=== PATIENT | female | born 1985 | race Caucasian/White ===

== ENCOUNTER 2019-03-30 17:51 | Emergency (ER) | payer MEDICAID ==
[~2019-03-30] VITALS: Ht 170.2 cm; Wt 73.5 kg
[2019-03-30] MEDS ORDERED: LISI-600 PO (20:09)
[2019-03-30 20:30] VITALS: BP 132/94
== END 2019-03-30 20:33 | disposition home or self-care (01) ==
LOC: ER 17:52
DX: R06.00 Dyspnea, unspecified (principal); I10 Essential (primary) hypertension; F12.90 Cannabis use, unspecified, uncomplicated; Z88.8 Allergy status to other drugs, medicaments and biological substances; Z79.899 Other long term (current) drug therapy
CPT/HCPCS: 71046; 93005; 99283

== ENCOUNTER 2019-04-11 14:00 | Emergency (ER) | payer MEDICAID ==
[~2019-04-11] VITALS: Ht 170.2 cm; Wt 73.8 kg
[~2019-04-11 14:00] MED LIST: LISI-600 PO
[2019-04-11 15:36] VITALS: BP 130/89
[2019-04-11] MEDS ORDERED: ALPR-624 PO (15:36)
== END 2019-04-11 15:58 | disposition home or self-care (01) ==
LOC: ER 14:02
DX: F41.9 Anxiety disorder, unspecified (principal); I10 Essential (primary) hypertension; F10.99 Alcohol use, unspecified with unspecified alcohol-induced disorder; F12.90 Cannabis use, unspecified, uncomplicated; Z88.7 Allergy status to serum and vaccine; Z79.899 Other long term (current) drug therapy; Y90.9 Presence of alcohol in blood, level not specified
CPT/HCPCS: 93005; 99284

== ENCOUNTER 2020-04-08 08:52 | Emergency (ER) | payer MEDICAID ==
[~2020-04-08] VITALS: Ht 170.2 cm; Wt 80.0 kg
[~2020-04-08 08:52] MED LIST changes: +ALPR-624 PO; -LISI-600 PO
[2020-04-08 09:00] VITALS: BP 155/110
== END 2020-04-08 10:21 | disposition home or self-care (01) ==
LOC: ER 08:53
DX: J06.9 Acute upper respiratory infection, unspecified (principal); R06.02 Shortness of breath; R07.89 Other chest pain; R61 Generalized hyperhidrosis; Z20.828 Contact with and (suspected) exposure to other viral communicable diseases; I10 Essential (primary) hypertension; F41.9 Anxiety disorder, unspecified; F17.200 Nicotine dependence, unspecified, uncomplicated; F12.90 Cannabis use, unspecified, uncomplicated; Z87.440 Personal history of urinary (tract) infections; Z72.89 Other problems related to lifestyle; Z88.8 Allergy status to other drugs, medicaments and biological substances; Z79.899 Other long term (current) drug therapy
CPT/HCPCS: 36415; 71045; 99283

== ENCOUNTER 2020-04-10 19:27 | Emergency (ER) | payer MEDICAID ==
[~2020-04-10] VITALS: Ht 170.2 cm; Wt 72.0 kg
[2020-04-10 23:31] VITALS: BP 110/68
== END 2020-04-10 23:32 | disposition home or self-care (01) ==
LOC: ER 19:27
DX: R00.2 Palpitations (principal); I10 Essential (primary) hypertension; F41.9 Anxiety disorder, unspecified; F17.200 Nicotine dependence, unspecified, uncomplicated; F12.10 Cannabis abuse, uncomplicated; Z88.8 Allergy status to other drugs, medicaments and biological substances
CPT/HCPCS: 71046; 99283

== ENCOUNTER 2020-05-02 18:57 | Emergency (ER) | payer MEDICAID ==
[~2020-05-02] VITALS: Ht 170.2 cm; Wt 77.0 kg
[2020-05-02] MEDS ORDERED: PRED20TA PO (21:38)
[2020-05-02 21:48] VITALS: BP 149/92
== END 2020-05-02 21:46 | disposition home or self-care (01) ==
LOC: ER 18:57
DX: I10 Essential (primary) hypertension (principal); F41.0 Panic disorder [episodic paroxysmal anxiety]; T45.0X5A Adverse effect of antiallergic and antiemetic drugs, initial encounter; F41.9 Anxiety disorder, unspecified; F12.90 Cannabis use, unspecified, uncomplicated; Z87.440 Personal history of urinary (tract) infections; Z72.89 Other problems related to lifestyle; Z88.2 Allergy status to sulfonamides; Z79.899 Other long term (current) drug therapy; Y92.89 Other specified places as the place of occurrence of the external cause
CPT/HCPCS: 99283

== ENCOUNTER 2020-05-08 08:42 | Emergency (ER) | payer MEDICAID ==
[~2020-05-08] VITALS: Ht 170.2 cm; Wt 74.3 kg
[~2020-05-08 08:42] MED LIST changes: +PRED20TA PO
[2020-05-08 09:35] LABS: BASOPHILS % (AUTO) 0.4 % (0-1); EOSINOPHILS # (AUTO) 0.1 X10'3 (0-0.9); EOSINOPHILS % (AUTO) 0.7 % (0-6); HEMATOCRIT 49.5 % (35.0-45.0); HEMOGLOBIN 17.1 g/dl (12.0-16.0); LYMPHOCYTES # (AUTO) 1.9 X10'3 (1.1-4.8); LYMPHOCYTES % (AUTO) 20.2 % (21-51); MEAN CORPUSCULAR HEMOGLOBIN 29.9 PG (27.0-31.0); MEAN CORPUSCULAR HGB CONC 34.6 g/dL (33.0-36.5); MEAN CORPUSCULAR VOLUME 86.4 FL (78-98); MEAN PLATELET VOLUME 8.2 FL (7.4-10.4); MONOCYTES # (AUTO) 0.4 X10'3 (0-0.9); MONOCYTES % (AUTO) 4.5 % (2-12); NEUTROPHILS # (AUTO) 6.8 X10'3 (1.8-7.7); NEUTROPHILS % (AUTO) 74.2 % (42-75); PLATELET COUNT 265 X10'3 (140-440); RED BLOOD COUNT 5.73 X10'6 (4.20-5.60); RED CELL DISTRIBUTION WIDTH 13.1 % (11.5-14.5); WHITE BLOOD COUNT 9.2 X10'3 (4.5-11.0)
[2020-05-08 09:47] LABS: CLARITY,URINE CLOUDY (Clear); COLOR,URINE YELLOW (Yellow); GLUCOSE, URINE NEGATIVE (Neg); KETONES,URINE >=80 mg/dl (Neg); LEUKOCYTE ESTERASE ,URINE NEGATIVE (Neg); NITRITES, URINE NEGATIVE (Neg); OCCULT BLOOD,URINE LARGE (Neg); PH,URINE 5.5 (4.8-8.0); PROTEIN,URINE 30 mg/dl (Neg); URINE HCG NEGATIVE (NEG)
[2020-05-08 09:51] LABS: UA COLLECTION TYPE CLN CATCH MIDSTREAM
[2020-05-08 09:53] LABS: MUCUS STRANDS MANY /LPF (Neg); SQUAMOUS EPITHELIAL CELL,UR MANY /LPF (FEW); TRANSITIONAL EPI CELLS,URINE FEW /HPF
[2020-05-08 09:55] LABS: URINE AMPHETAMINE SCREEN NEGATIVE (Neg); URINE BARBITUATE SCREEN NEGATIVE (Neg); URINE BENZODIAZEPINES SCREEN NEGATIVE (Neg); URINE CANNABINOID SCREEN POSITIVE (Neg); URINE COCAINE SCREEN NEGATIVE (Neg); URINE METHADONE SCREEN NEGATIVE (Neg); URINE OPIATE SCREEN NEGATIVE (Neg); URINE PHENCYCLIDINE SCREEN NEGATIVE (Neg)
[2020-05-08 09:55] LABS: ALANINE AMINOTRANSFERASE 28 U/L (12-78); ALBUMIN 4.3 G/DL (3.4-5.0); ALBUMIN/GLOBULIN RATIO 1.2 (1.1-1.5); ALKALINE PHOSPHATASE 64 IU/L (46-116); ANION GAP 10 (8-16); ASPARTATE AMINO TRANSFERASE 15 U/L (10-37); BILIRUBIN,TOTAL 0.6 MG/DL (0.1-1.0); BLOOD UREA NITROGEN 16 MG/DL (7-18); CALCIUM 9.1 MG/DL (8.5-10.1); CHLORIDE 103 MMOL/L (99-107); CREATININE 0.89 MG/DL (0.40-0.90); GLUCOSE 101 MG/DL (70-104); POTASSIUM 3.6 MMOL/L (3.5-5.1); SODIUM 139 MMOL/L (135-145); TOTAL CARBON DIOXIDE 25.6 MMOL/L (24-32); eGFR 72 ML/MIN
[2020-05-08 09:57] LABS: BACTERIA,URINE 2+ /HPF (Neg); WBC,URINE 0-4 /HPF (0-4)
[2020-05-08 10:03] LABS: MAGNESIUM 1.7 MG/DL (1.5-2.4)
[2020-05-08 10:06] LABS: ETHANOL < 0.010 GM/DL (0.0-0.010)
[2020-05-08] MEDS ORDERED: aspirin 81mg tab.chew PO ONE (12:35)
[2020-05-08 12:57] VITALS: BP 133/90
== END 2020-05-08 12:58 | disposition home or self-care (01) ==
LOC: ER 08:43
DX: R07.89 Other chest pain (principal); E86.0 Dehydration; R53.1 Weakness; R53.83 Other fatigue; R00.2 Palpitations; I10 Essential (primary) hypertension; F41.9 Anxiety disorder, unspecified; Z72.89 Other problems related to lifestyle; F12.90 Cannabis use, unspecified, uncomplicated; Z88.2 Allergy status to sulfonamides; Z79.899 Other long term (current) drug therapy
CPT/HCPCS: 36415; 80053; 80305; 80320; 81001; 81025; 83735; 83880; 84443; 84484; 85025; 93005; 99285

== ENCOUNTER 2020-10-03 18:03 | Emergency (ER) | payer MEDICAID ==
[~2020-10-03] VITALS: Ht 170.2 cm; Wt 79.5 kg
[~2020-10-03 18:03] MED LIST changes: -PRED20TA PO
[2020-10-03 18:09] VITALS: BP 167/105
[2020-10-03 20:20] LABS: BASOPHILS # (AUTO) 0.1 X10'3 (0-0.2); BASOPHILS % (AUTO) 0.5 % (0-1); EOSINOPHILS # (AUTO) 0.1 X10'3 (0-0.9); EOSINOPHILS % (AUTO) 1.3 % (0-6); HEMATOCRIT 48.6 % (35.0-45.0); LYMPHOCYTES # (AUTO) 2.4 X10'3 (1.1-4.8); LYMPHOCYTES % (AUTO) 22.6 % (21-51); MEAN CORPUSCULAR HEMOGLOBIN 30.5 PG (27.0-31.0); MEAN CORPUSCULAR HGB CONC 34.9 g/dL (33.0-36.5); MEAN CORPUSCULAR VOLUME 87.2 FL (78-98); MONOCYTES # (AUTO) 0.6 X10'3 (0-0.9); MONOCYTES % (AUTO) 6.1 % (2-12); NEUTROPHILS # (AUTO) 7.3 X10'3 (1.8-7.7); NEUTROPHILS % (AUTO) 69.5 % (42-75); PLATELET COUNT 267 X10'3 (140-440); RED BLOOD COUNT 5.57 X10'6 (4.20-5.60); RED CELL DISTRIBUTION WIDTH 13.2 % (11.5-14.5); WHITE BLOOD COUNT 10.5 X10'3 (4.5-11.0)
[2020-10-03 20:24] LABS: URINE HCG NEGATIVE (NEG)
[2020-10-03 20:35] LABS: ALANINE AMINOTRANSFERASE 28 U/L (12-78); ALBUMIN 4.3 G/DL (3.4-5.0); ALBUMIN/GLOBULIN RATIO 1.2 (1.1-1.5); ALKALINE PHOSPHATASE 68 IU/L (46-116); ANION GAP 9 (8-16); ASPARTATE AMINO TRANSFERASE 13 U/L (10-37); BILIRUBIN,TOTAL 0.6 MG/DL (0.1-1.0); BLOOD UREA NITROGEN 15 MG/DL (7-18); BUN/CREATININE RATIO 17.9 (6.6-38.0); CALCIUM 9.2 MG/DL (8.5-10.1); CHLORIDE 103 MMOL/L (99-107); CREATININE 0.84 MG/DL (0.40-0.90); GLUCOSE 90 MG/DL (70-104); POTASSIUM 3.7 MMOL/L (3.5-5.1); SODIUM 140 MMOL/L (135-145); eGFR 77 ML/MIN
== END 2020-10-03 21:14 | disposition home or self-care (01) ==
LOC: ER 18:03
DX: R00.2 Palpitations (principal); R53.83 Other fatigue; R06.2 Wheezing; R53.1 Weakness; R51.9 Headache, unspecified; I10 Essential (primary) hypertension; F41.9 Anxiety disorder, unspecified; F12.90 Cannabis use, unspecified, uncomplicated; Z87.440 Personal history of urinary (tract) infections; Z72.89 Other problems related to lifestyle; Z88.2 Allergy status to sulfonamides; Z88.8 Allergy status to other drugs, medicaments and biological substances; Z79.899 Other long term (current) drug therapy
CPT/HCPCS: 36415; 80053; 81025; 84443; 85025; 93005; 99284

== ENCOUNTER 2021-01-22 17:07 | Emergency (ER) | payer MEDICAID ==
[~2021-01-22] VITALS: Ht 170.2 cm; Wt 77.3 kg
[2021-01-22 19:06] LABS: BASOPHILS % (AUTO) 0.4 % (0-1); EOSINOPHILS # (AUTO) 0.1 X10'3 (0-0.9); EOSINOPHILS % (AUTO) 0.5 % (0-6); HEMATOCRIT 49.4 % (35.0-45.0); HEMOGLOBIN 16.9 g/dl (12.0-16.0); LYMPHOCYTES # (AUTO) 1.8 X10'3 (1.1-4.8); LYMPHOCYTES % (AUTO) 13.7 % (21-51); MEAN CORPUSCULAR HEMOGLOBIN 29.8 PG (27.0-31.0); MEAN CORPUSCULAR HGB CONC 34.2 g/dL (33.0-36.5); MEAN CORPUSCULAR VOLUME 87.2 FL (78-98); MEAN PLATELET VOLUME 8.1 FL (7.4-10.4); MONOCYTES # (AUTO) 0.7 X10'3 (0-0.9); MONOCYTES % (AUTO) 5.3 % (2-12); NEUTROPHILS # (AUTO) 10.6 X10'3 (1.8-7.7); NEUTROPHILS % (AUTO) 80.1 % (42-75); PLATELET COUNT 274 X10'3 (140-440); RED BLOOD COUNT 5.66 X10'6 (4.20-5.60); RED CELL DISTRIBUTION WIDTH 12.8 % (11.5-14.5); WHITE BLOOD COUNT 13.3 X10'3 (4.5-11.0)
[2021-01-22 19:11] LABS: ALANINE AMINOTRANSFERASE 31 U/L (12-78); ALBUMIN 4.4 G/DL (3.4-5.0); ALBUMIN/GLOBULIN RATIO 1.2 (1.1-1.5); ALKALINE PHOSPHATASE 84 IU/L (46-116); ANION GAP 10 (8-16); ASPARTATE AMINO TRANSFERASE 13 U/L (10-37); BILIRUBIN,TOTAL 0.5 MG/DL (0.1-1.0); BLOOD UREA NITROGEN 10 MG/DL (7-18); BUN/CREATININE RATIO 11.6 (6.6-38.0); CHLORIDE 104 MMOL/L (99-107); CREATININE 0.86 MG/DL (0.40-0.90); GLUCOSE 101 MG/DL (70-104); POTASSIUM 3.9 MMOL/L (3.5-5.1); SODIUM 142 MMOL/L (135-145); TOTAL CARBON DIOXIDE 28.1 MMOL/L (24-32); eGFR 75 ML/MIN
[2021-01-22 22:30] VITALS: BP 135/91
== END 2021-01-22 23:18 | disposition home or self-care (01) ==
LOC: ER 17:08
DX: R07.89 Other chest pain (principal); R11.0 Nausea; R53.83 Other fatigue; R10.13 Epigastric pain; I10 Essential (primary) hypertension; F41.9 Anxiety disorder, unspecified; F17.200 Nicotine dependence, unspecified, uncomplicated; F12.90 Cannabis use, unspecified, uncomplicated; Z72.89 Other problems related to lifestyle; Z87.440 Personal history of urinary (tract) infections; Z88.2 Allergy status to sulfonamides; Z88.7 Allergy status to serum and vaccine; Z79.899 Other long term (current) drug therapy
CPT/HCPCS: 36415; 71045; 80053; 83880; 84484; 85025; 93005; 99285

== ENCOUNTER 2023-08-15 21:15 | Emergency (ER) | payer MEDICAID ==
[~2023-08-15] VITALS: Ht 170.2 cm; Wt 71.4 kg
[2023-08-15] MEDS: ondansetron/PF 4mg/2ml inj IV ONE (21:35)
[2023-08-15] MEDS: ketorolac trometh. 30mg/ml inj. IV ONE (21:35)
[2023-08-15] MEDS: normal saline 1000ML IV soln IVB ONE (21:35)
[2023-08-15 22:16] LABS: BASOPHILS # (AUTO) 0.1 X10'3 (0-0.2); BASOPHILS % (AUTO) 0.4 % (0-1); EOSINOPHILS # (AUTO) 0.2 X10'3 (0-0.9); EOSINOPHILS % (AUTO) 1.2 % (0-6); HEMATOCRIT 49.5 % (35.0-45.0); HEMOGLOBIN 16.9 g/dl (12.0-16.0); LYMPHOCYTES # (AUTO) 3.5 X10'3 (1.1-4.8); LYMPHOCYTES % (AUTO) 26.3 % (21-51); MEAN CORPUSCULAR HGB CONC 34.2 g/dL (33.0-36.5); MEAN CORPUSCULAR VOLUME 87.7 FL (78-98); MEAN PLATELET VOLUME 8.4 FL (7.4-10.4); MONOCYTES # (AUTO) 0.9 X10'3 (0-0.9); MONOCYTES % (AUTO) 7.2 % (2-12); NEUTROPHILS # (AUTO) 8.6 X10'3 (1.8-7.7); NEUTROPHILS % (AUTO) 64.9 % (42-75); PLATELET COUNT 281 X10'3 (140-440); RED BLOOD COUNT 5.65 X10'6 (4.20-5.60); RED CELL DISTRIBUTION WIDTH 12.7 % (11.5-14.5); WHITE BLOOD COUNT 13.3 X10'3 (4.5-11.0)
[2023-08-15 22:31] LABS: ALANINE AMINOTRANSFERASE 25 U/L (12-78); ALBUMIN/GLOBULIN RATIO 1.2 (1.1-1.5); ALKALINE PHOSPHATASE 63 IU/L (46-116); ANION GAP 6 (8-16); ASPARTATE AMINO TRANSFERASE 12 U/L (10-37); BILIRUBIN,TOTAL 0.4 MG/DL (0.1-1.0); BLOOD UREA NITROGEN 16 MG/DL (7-18); BUN/CREATININE RATIO 19.3 (10.0-20.0); CALCIUM 9.2 MG/DL (8.5-10.1); CHLORIDE 106 MMOL/L (99-107); CREATININE 0.83 MG/DL (0.40-0.90); GLUCOSE 105 MG/DL (70-104); POTASSIUM 4.1 MMOL/L (3.5-5.1); SODIUM 142 MMOL/L (135-145); TOTAL CARBON DIOXIDE 29.6 MMOL/L (24-32); TOTAL PROTEIN 7.3 G/DL (6.4-8.2); eCRCL 89 ML/MIN; eGFR 77 ML/MIN
[2023-08-15 22:36] LABS: LIPASE 67 U/L (16-77)
[2023-08-15 23:00] LABS: BETA HCG,QUANTITATIVE < 1.0 mIU/ml
[2023-08-15 23:28] LABS: BILIRUBIN,URINE NEGATIVE (Neg); CLARITY,URINE CLEAR (Clear); COLOR,URINE STRAW (Yellow); GLUCOSE, URINE NEGATIVE (Neg); KETONES,URINE NEGATIVE (Neg); LEUKOCYTE ESTERASE ,URINE TRACE (Neg); NITRITES, URINE NEGATIVE (Neg); OCCULT BLOOD,URINE NEGATIVE (Neg); PROTEIN,URINE NEGATIVE (Neg); UROBILINOGEN,URINE 0.2 E.U/dL (0.2-1.0)
[2023-08-15 23:39] LABS: UA COLLECTION TYPE CLN CATCH MIDSTREAM
[2023-08-15 23:44] LABS: BACTERIA,URINE 1+ /HPF (Neg); MUCUS STRANDS NONE SEEN /LPF (Neg); SQUAMOUS EPITHELIAL CELL,UR FEW /LPF (FEW)
[2023-08-15 23:45] LABS: RBC,URINE 0-2 /HPF (0-2); TRANSITIONAL EPI CELLS,URINE FEW /HPF
[2023-08-15 23:46] LABS: WBC,URINE 0-4 /HPF (0-4)
[2023-08-16] MEDS ORDERED: LEVO-65 PO (00:33)
[2023-08-16] MEDS ORDERED: PHEN-716 PO (00:33)
[2023-08-16] MEDS ORDERED: ONDA8TAB13 PO (00:33)
[2023-08-16 00:36] VITALS: BP 123/89; PULSE 68; RESP 16; TEMP 97.8; O2SAT 97
== END 2023-08-16 00:48 | disposition home or self-care (01) ==
LOC: ER 21:16
DX: N39.0 Urinary tract infection, site not specified (principal); I10 Essential (primary) hypertension; F12.90 Cannabis use, unspecified, uncomplicated; Z88.2 Allergy status to sulfonamides; Z88.7 Allergy status to serum and vaccine; Z79.899 Other long term (current) drug therapy
CPT/HCPCS: 36415; 74176; 80053; 81001; 83690; 84702; 85025; 87088; 99284; J7030

== ENCOUNTER 2023-08-17 10:09 | Emergency (ER) | payer MEDICAID ==
[~2023-08-17] VITALS: Ht 170.2 cm; Wt 70.1 kg
[~2023-08-17 10:09] MED LIST changes: +LEVO-65 PO; +ONDA8TAB13 PO; +PHEN-716 PO
[2023-08-17 12:48] VITALS: BP 121/72; PULSE 71; RESP 16; TEMP 98; O2SAT 97
== END 2023-08-17 12:54 | disposition home or self-care (01) ==
LOC: ER 10:11
DX: M79.605 Pain in left leg (principal); F12.10 Cannabis abuse, uncomplicated; Z88.2 Allergy status to sulfonamides; Z88.8 Allergy status to other drugs, medicaments and biological substances; Z79.899 Other long term (current) drug therapy
CPT/HCPCS: 93971; 99284

== ENCOUNTER 2023-08-23 14:01 | Emergency (ER) | payer MEDICAID ==
[~2023-08-23] VITALS: Ht 170.2 cm; Wt 69.4 kg
[2023-08-23 15:03] VITALS: PULSE 91; TEMP 98
[2023-08-23 16:19] VITALS: RESP 16
== END 2023-08-23 16:21 | disposition home or self-care (01) ==
LOC: ER 14:02
DX: R07.89 Other chest pain (principal); I10 Essential (primary) hypertension; F41.9 Anxiety disorder, unspecified; F12.10 Cannabis abuse, uncomplicated; Z88.2 Allergy status to sulfonamides; Z88.1 Allergy status to other antibiotic agents; Z79.899 Other long term (current) drug therapy
CPT/HCPCS: 71045; 99283

== ENCOUNTER 2023-12-06 10:11 | Outpatient (CLI) | payer MEDICAID ==
[~2023-12-06 10:11] MED LIST changes: -LEVO-65 PO; +ONDA-245 PO; -ONDA8TAB13 PO
== END 2023-12-06 23:59 | disposition home or self-care (01) ==
LOC: RAD 10:11
PROVIDERS: ATTEND Family Medicine
DX: R22.0 Localized swelling, mass and lump, head (principal)
CPT/HCPCS: 70486